=== PATIENT | male | born 1970 | race Caucasian/White ===

== ENCOUNTER 2016-11-11 21:51 | Emergency (ER) | payer BC ==
[2016-11-11 22:17] VITALS: BP 192/112; PULSE 101; RESP 20; TEMP 98.3; O2SAT 97
[2016-11-11] MEDS ORDERED: LIDOCAINE 1%/EPINEPHrine 1:100,000 SOLN 20 ML VIAL INFIL ONE (22:30)
--- NOTE | 2016-11-11 22:56 | PD ---
HPI Chief Complaint: Fall Time Seen by Provider: 22:52 Travel History International Travel<30 days: No Contact w/Intl Traveler<30days: No Traveled to known affect area: No History of Present Illness HPI 46-year-old male that presents to the ED for evaluation of fall. Patient had a trip and fall from stairs today. This happened less than half an hour ago. Patient came here by ambulance. Patient reports that he was drinking today and he apparently missed a step and fell landed on his head. He denies losing consciousness. Family was present as well as friends who deny loss of consciousness. Patient was brought by ambulance. Patient states having a laceration to the left side of the face but complains of no pain at all. Denies any back or neck pain. Patient was put on backboard and cervical collar for precautions. Again patient denies any pain. He does appear to be somewhat intoxicated but is not agitated or appears to be in any acute distress. He denies any blurry vision or double vision. [facility] Past Medical History Medical History: Denies Significant Hx Diminished Hearing: No Past Surgical History Surgical History: No Previous Surgery Social History Alcohol Use: Yes (SOCIALLY) Tobacco Use: No Substance Use: No Allergies-Medications (Allergen,Severity, Reaction): Coded Allergies: No Known Allergies (Unverified , 11/11/16) Review of Systems Except as stated in HPI: all other systems reviewed are Neg Physical Exam Narrative GENERAL: SKIN: Warm and dry. Patient has a Y-shaped laceration to the left cheek that is bleeding, and no sign of arterial bleed though. Pressure seems to stop the bleeding. Laceration about 2.5 cm. HEAD: Atraumatic. Normocephalic. EYES: Pupils equal and round 4 mm reactive to light and accommodation. EOM intact bilaterally.. No scleral icterus. No injection or drainage. ENT: No nasal bleeding or discharge. Mucous membranes pink and moist. Tongue is midline. No uvula deviation. NECK: Trachea midline. No JVD. CARDIOVASCULAR: Regular rate and rhythm. No murmurs, S3, S4. RESPIRATORY: No accessory muscle use. Clear to auscultation. Breath sounds equal bilaterally. GASTROINTESTINAL: Abdomen soft, non-tender, nondistended. Hepatic and splenic margins not palpable. MUSCULOSKELETAL: Extremities without clubbing, cyanosis, or edema. No obvious deformities. No cervical, thoracic, lumbar spine tenderness to palpation. Full range of motion of the upper extremities with no pain or deformity noted. Patient does have a what appears to be a old bruise to the left superior mid leg. No tenderness to palpation in this area with full range of motion of the lower extremities. 2+ pulses bilaterally. Neurovascular intact. NEUROLOGICAL: Awake and alert. No obvious cranial nerve deficits. Motor grossly within normal limits. Five out of 5 muscle strength in the arms and legs. Normal speech. PSYCHIATRIC: Appropriate mood and affect; insight and judgment normal. Data Data Last Documented VS Vital Signs Date Time Temp Pulse Resp B/P Pulse Ox O2 Delivery O2 Flow Rate FiO2 11/11/16 22:20 Room Air 11/11/16 22:17 98.3 101 20 192/[address] Brain W/O Iv Contrast(Rout) (11/11/16 22:25) Ct Cerv Spine W/O Contrast (11/11/16 22:25) Ct Facial Bones W/O Iv Cont (11/11/16 22:25) Wound Care (11/11/16 22:25) Lidocai-Epi 1%-1:100,000 Inj (Xylocaine- (11/11/16 22:30) MDM Medical Decision Making Medical Screen Exam Complete: Yes Emergency Medical Condition: Yes Medical Record Reviewed: Yes Differential Diagnosis Fall versus fracture versus laceration versus ICH Narrative Course 46-year-old male that presents to the ED for evaluation of fall. Patient was properly examined and was found to have signs and symptoms consistent appears to be trauma to the head. Patient is intoxicated. Condition is to the CTs of the head and neck. Patient is agreeable with this. After explained procedure to the patient and she agreed to it laceration was repaired as stated in procedure note. Case was signed out to my attending pending imaging. Procedures Procedure Narrative LACERATION LOCATION: left cheek LENGTH: 2 cm Y shaped NUMBER OF STITCHES/ANIKA: 7 sutures REPAIR: The area of the laceration was prepped with Betadine and sterilely draped. The laceration was infiltrated with 1% Xylocaine. The wound was copiously irrigated and explored without evidence of foreign body, tendon injury or neurovascular injury. The wound was closed using 4-0 prolene. This was a 1 layer repair. A sterile dressing was applied. The patient was advised to keep the dressing clean and dry. Patient tolerated the procedure well. Hank Olson Nov 11, 2016 22:56
--- NOTE | 2016-11-11 23:21 | RADRPT ---
EXAM DATE/TIME: 11/11/2016 23:08 [facility] COMPARISON: No previous studies available for comparison. INDICATIONS : Fell out of chair with loss of consciousness. RADIATION DOSE: 56.35 CTDIvol (mGy) MEDICAL HISTORY : None SURGICAL HISTORY : None. ENCOUNTER: Initial ACUITY: 1 day PAIN SCALE: 0/10 LOCATION: cranial TECHNIQUE: Multiple contiguous axial images were obtained of the head. Using automated exposure control and adj ustment of the mA and/or kV according to patient size, radiation dose was kept as low as reasonably a chievable to obtain optimal diagnostic quality images. FINDINGS: There is a large left infraorbital/facial hematoma seen within the subcutaneous tissues with soft tis brea swelling noted. Ventricles and cisterns are of normal size and configuration. No signs of intracr anial hemorrhage, acute infarct, or mass. There is a small amount of soft tissue emphysema in the lef t facial soft tissues. No fractures. CONCLUSION: Left facial hematoma and soft tissue swelling/laceration. Jaiden Regan MD on November 11, 2016 at 23:19 Board Certified Radiologist. This report was verified electronically.
--- NOTE | 2016-11-11 23:37 | RADRPT ---
EXAM DATE/TIME: 11/11/2016 23:09 [facility] COMPARISON: No previous studies available for comparison. INDICATIONS : Fell out of chair, neck pain. RADIATION DOSE: 22.62 CTDIvol (mGy) MEDICAL HISTORY : None SURGICAL HISTORY : None. ENCOUNTER: Initial ACUITY: 1 day PAIN SCALE: 4/10 LOCATION: neck TECHNIQUE: Volumetric scanning of the cervical spine was performed. Multiplanar reconstructions in the sagittal, coronal and oblique axial planes were performed. Using automated exposure control and adjustment o f the mA and/or kV according to patient size, radiation dose was kept as low as reasonably achievable to obtain optimal diagnostic quality images. FINDINGS: Normal alignment. No prevertebral soft tissue swelling or compression deformity. Odontoid process is intact. There is moderate disc space narrowing and mild anterior osteophyte formation at C5-6. Mild u ncovertebral hypertrophy at C5-6. Cervicothoracic junction is approximated. CONCLUSION: 1. Degenerative disc disease at C5-6 with no fracture or listhesis. Associated mild to moderate canal narrowing. Jaiden Regan MD on November 11, 2016 at 23:34 Board Certified Radiologist. This report was verified electronically.
--- NOTE | 2016-11-11 23:39 | RADRPT ---
EXAM DATE/TIME: 11/11/2016 23:10 [facility] COMPARISON: CT BRAIN W/O CONTRAST, November 11, 2016, 23:08. INDICATIONS : Fell out of chair, facial pain and laceration RADIATION DOSE: 21.96 CTDIvol (mGy) MEDICAL HISTORY : None SURGICAL HISTORY : None. ENCOUNTER: Initial ACUITY: 1 day PAIN SCORE: 4/10 LOCATION: facial TECHNIQUE: Volumetric scanning of the facial bones was performed. Using automated exposure control and adjustme nt of the mA and/or kV according to patient size, radiation dose was kept as low as reasonably achiev able to obtain optimal diagnostic quality images. FINDINGS: There is a large left facial laceration and hematoma with foci of subcutaneous emphysema and subcutan eous hematoma measuring 4.1 x 1.8 cm in transverse and AP dimension on axial image 36 of series 4. No fractures are seen. CONCLUSION: 1. No fractures. Left facial hematoma/laceration. Jaiden Regan MD on November 11, 2016 at 23:36 Board Certified Radiologist. This report was verified electronically.
== END 2016-11-12 04:22 | disposition left against medical advice (07) ==
LOC: NEPE 21:51
DX: S01.412A Laceration without foreign body of left cheek and temporomandibular area, initial encounter (principal)
CPT/HCPCS: 12011; 70450; 70486; 72125